=== PATIENT | male | born 1955 | race Caucasian/White ===

== ENCOUNTER 2018-06-08 19:40 | Inpatient (IN) | payer OTHER ==
[~2018-06-08] VITALS: Ht 177.8 cm; Wt 80.1 kg
[2018-06-08] MEDS ORDERED: FLUT1DIS3 INH (19:52)
[2018-06-08] MEDS ORDERED: AMLO10TA2 PO (19:52)
[2018-06-08] MEDS ORDERED: MONT10TA6 PO (19:52)
[2018-06-08 20:28] LABS: MEAN CORPUSCULAR HEMOGLOBIN 30.9 pg (27.5-34.5); MEAN CORPUSCULAR HGB CONC 34.7 g/dL (33.2-36.2); MEAN CORPUSCULAR VOLUME 88.9 fL (81-97); MEAN PLATELET VOLUME 6.7 fL (7.4-10.4); PLATELET COUNT 231 x10^3/uL (130-400); RED BLOOD COUNT 4.45 x10^6/uL (4.38-5.82); RED CELL DISTRIBUTION WIDTH 14.7 % (9.4-14.8)
[2018-06-08 20:36] LABS: ALANINE AMINOTRANSFERASE 37 U/L (12-78); ALBUMIN 3.6 g/dL (3.4-5.0); ANION GAP 9 mmol/L (5-15); CALCIUM 8.6 mg/dL (8.5-10.1); CHLORIDE 102 mmol/L (98-107); CREATININE 0.95 mg/dL (0.7-1.3)
[2018-06-08 20:40] LABS: ALKALINE PHOSPHATASE 62 U/L (45-117); BILIRUBIN,TOTAL 0.9 mg/dL (0.2-1.0); TOTAL PROTEIN 7.7 g/dL (6.4-8.2); TROPONIN I < 0.015 ng/mL (0.000-0.045)
[2018-06-08 20:54] LABS: MD YES
[2018-06-08 20:56] LABS: <RBC MORPHOLOGY> NORMAL; BAND#(MANUAL) 2.31 x10^3/uL; BANDS%(MANUAL) 14 % (0-7); LYMPH#(MANUAL) 0.33 x10^3/uL (1-3.4); LYMPHS% (MANUAL) 2 % (22-44); MONOS#(MANUAL) 0.17 x10^3/uL (0.3-2.7); MONOS% (MANUAL) 1 % (2-9); SEGS% (MANUAL) 83 % (42-75)
[2018-06-08 20:57] LABS: <PLATELET ESTIMATE> ADEQUATE; <PLT MORPHOLOGY> NORMAL PLT MORPH
[2018-06-08] MEDS ORDERED: SODIUM CHLORIDE 0.9% 1,000ML IVBOLUS ONE (21:00)
[2018-06-08] MEDS ORDERED: CEFEPIME 2 GM in DEXTROSE 5% 100 ML IV SCH (21:00)
[2018-06-08] MEDS ORDERED: VANCOMYCIN 1,600 MG in SODIUM CHLORIDE 0.9% 250 ML IV ONE (21:00)
[2018-06-08] MEDS ORDERED: OMNIPAQUE 350 MG/ML, 100ML BOTTLE ONE (21:10)
[2018-06-08] MEDS ORDERED: VANCOMYCIN PER PHARMACY MC ONE (21:30)
[2018-06-08] MEDS ORDERED: CEFEPIME 2 GM in DEXTROSE 5% 100 ML IV ONE (21:30)
[2018-06-08] MEDS ORDERED: ONDANSETRON 2MG/ML, 2ML IVPush PRN (22:00)
[2018-06-08] MEDS ORDERED: POLYETHYLENE GLYCOL 17 GM PACKET PO PRN (22:00)
[2018-06-08] MEDS ORDERED: GUAIFENESIN/DM 200-20MG, 10ML UDC PO PRN (22:00)
[2018-06-08] MEDS ORDERED: hydrALAzine 20 MG/ML, 1ML IVPush PRN (22:00)
[2018-06-08] MEDS ORDERED: ACETAMINOPHEN 325 MG TABLET PO PRN (22:00)
[2018-06-08] MEDS ORDERED: VANCOMYCIN PER PHARMACY MC PRN (22:00)
[2018-06-08 22:30] VITALS: BP 122/82
[2018-06-08] MEDS ORDERED: PHARMACOKINETIC CONSULTATION MC ONE (22:30)
[2018-06-08] MEDS ORDERED: PHARMACOKINETIC MONITORING MC PRN (22:30)
[2018-06-08] MEDS: ENOXAPARIN 40 MG/0.4 ML SQ SCH (22:37)
[2018-06-09 01:15] VITALS: BP 131/88
[2018-06-09] MEDS ORDERED: ALBUTEROL SULFATE 2.5 MG/3 ML NPPB PRN (01:30)
[2018-06-09 04:44] LABS: MEAN CORPUSCULAR HEMOGLOBIN 31.1 pg (27.5-34.5); MEAN CORPUSCULAR HGB CONC 34.8 g/dL (33.2-36.2); MEAN CORPUSCULAR VOLUME 89.4 fL (81-97); PLATELET COUNT 203 x10^3/uL (130-400); RED BLOOD COUNT 4.08 x10^6/uL (4.38-5.82); RED CELL DISTRIBUTION WIDTH 14.5 % (9.4-14.8)
[2018-06-09] MEDS: CEFEPIME 2 GM in DEXTROSE 5% 100 ML IV SCH ×3 (04:53→22:07)
[2018-06-09 04:55] LABS: CALCIUM 8.6 mg/dL (8.5-10.1); CHLORIDE 103 mmol/L (98-107)
[2018-06-09 04:59] LABS: ANION GAP 7 mmol/L (5-15); CREATININE 0.82 mg/dL (0.7-1.3)
[2018-06-09 05:41] LABS: MD YES
[2018-06-09 05:43] LABS: <RBC MORPHOLOGY> NORMAL; BAND#(MANUAL) 2.03 x10^3/uL; BANDS%(MANUAL) 10 % (0-7); LYMPH#(MANUAL) 1.62 x10^3/uL (1-3.4); LYMPHS% (MANUAL) 8 % (22-44); METAMYELOCYTES% (MANUAL) 1 % (0-1); MONOS#(MANUAL) 0.41 x10^3/uL (0.3-2.7); MONOS% (MANUAL) 2 % (2-9); SEG#(MANUAL) 16.04 x10^3/uL (1.8-6.8); SEGS% (MANUAL) 79 % (42-75)
[2018-06-09 05:44] LABS: <PLATELET ESTIMATE> ADEQUATE; <PLT MORPHOLOGY> NORMAL PLT MORPH
[2018-06-09 06:52] VITALS: BP 120/72
[2018-06-09] MEDS ORDERED: MAGNESIUM SULFATE PMX 4GM/100M 100 ML IV ONE (09:30)
[2018-06-09] MEDS: MONTELUKAST 10 MG TABLET PO SCH (10:04)
[2018-06-09] MEDS: AMLODIPINE 5 MG TABLET PO SCH (10:04)
[2018-06-09] MEDS: FLUTICASONE/VILANTEROL 100-25MCG/INH INH SCH (12:17)
[2018-06-09 14:00] VITALS: BP 124/79
[2018-06-09] MEDS: VANCOMYCIN 1,600 MG in SODIUM CHLORIDE 0.9% 250 ML IV SCH (15:42)
[2018-06-09 18:43] VITALS: BP 126/78
[2018-06-09] MEDS ORDERED: ZOLPIDEM 5MG TABLET PO PRN (21:00)
[2018-06-09] MEDS: ENOXAPARIN 40 MG/0.4 ML SQ SCH (22:07)
[2018-06-10 00:32] VITALS: BP 123/77
[2018-06-10 04:42] LABS: BASOPHILS # (AUTO) 0.01 x10^3/uL (0-0.1); BASOPHILS % (AUTO) 0 % (0-1); EOSINOPHILS # (AUTO) 0.27 x10^3/uL (0-0.4); EOSINOPHILS % (AUTO) 3 % (1-7); LYMPHOCYTES # (AUTO) 0.66 x10^3/uL (1-3.4); LYMPHOCYTES % (AUTO) 8 % (22-44); MD NO; MEAN CORPUSCULAR HEMOGLOBIN 30.9 pg (27.5-34.5); MEAN CORPUSCULAR HGB CONC 33.9 g/dL (33.2-36.2); MEAN CORPUSCULAR VOLUME 91.4 fL (81-97); MEAN PLATELET VOLUME 7.1 fL (7.4-10.4); MONOCYTES # (AUTO) 0.45 x10^3/uL (0.2-0.8); MONOCYTES % (AUTO) 5 % (2-9); NEUTROPHILS # (AUTO) 7.19 x10^3/uL (1.8-6.8); NEUTROPHILS % (AUTO) 84 % (42-75); PLATELET COUNT 186 x10^3/uL (130-400); RED BLOOD COUNT 3.91 x10^6/uL (4.38-5.82)
[2018-06-10 04:48] LABS: ANION GAP 7 mmol/L (5-15); CALCIUM 8.5 mg/dL (8.5-10.1); CHLORIDE 104 mmol/L (98-107); CREATININE 0.79 mg/dL (0.7-1.3)
[2018-06-10] MEDS: CEFEPIME 2 GM in DEXTROSE 5% 100 ML IV SCH ×2 (06:45→13:12)
[2018-06-10 06:50] VITALS: BP 125/75
[2018-06-10] MEDS: AMLODIPINE 5 MG TABLET PO SCH (07:47)
[2018-06-10] MEDS: FLUTICASONE/VILANTEROL 100-25MCG/INH INH SCH (07:47)
[2018-06-10] MEDS: MONTELUKAST 10 MG TABLET PO SCH (07:47)
[2018-06-10] MEDS: VANCOMYCIN 1,600 MG in SODIUM CHLORIDE 0.9% 250 ML IV SCH (09:55)
[2018-06-10 12:12] VITALS: BP 119/78
[2018-06-10 19:26] VITALS: BP 145/81
[2018-06-10] MEDS: ENOXAPARIN 40 MG/0.4 ML SQ SCH (21:31)
[2018-06-10] MEDS: CEFEPIME 2 GM in SODIUM CHLORIDE 0.9% 100 ML IV SCH (21:31)
[2018-06-11 00:29] VITALS: BP 131/82
[2018-06-11] MEDS: VANCOMYCIN 1,600 MG in SODIUM CHLORIDE 0.9% 250 ML IV SCH ×2 (04:02→23:30)
[2018-06-11 04:46] LABS: ANION GAP 6 mmol/L (5-15); CHLORIDE 102 mmol/L (98-107); CREATININE 0.74 mg/dL (0.7-1.3)
[2018-06-11 04:55] LABS: BASOPHILS # (AUTO) 0.03 x10^3/uL (0-0.1); BASOPHILS % (AUTO) 0 % (0-1); EOSINOPHILS # (AUTO) 0.33 x10^3/uL (0-0.4); EOSINOPHILS % (AUTO) 5 % (1-7); LYMPHOCYTES # (AUTO) 0.94 x10^3/uL (1-3.4); LYMPHOCYTES % (AUTO) 14 % (22-44); MD NO; MEAN CORPUSCULAR HEMOGLOBIN 30.6 pg (27.5-34.5); MEAN CORPUSCULAR HGB CONC 34.1 g/dL (33.2-36.2); MEAN CORPUSCULAR VOLUME 89.8 fL (81-97); MEAN PLATELET VOLUME 7.1 fL (7.4-10.4); MONOCYTES # (AUTO) 0.51 x10^3/uL (0.2-0.8); MONOCYTES % (AUTO) 8 % (2-9); NEUTROPHILS # (AUTO) 4.73 x10^3/uL (1.8-6.8); NEUTROPHILS % (AUTO) 72 % (42-75); PLATELET COUNT 239 x10^3/uL (130-400); RED BLOOD COUNT 4.25 x10^6/uL (4.38-5.82); RED CELL DISTRIBUTION WIDTH 14.3 % (9.4-14.8)
[2018-06-11] MEDS: CEFEPIME 2 GM in SODIUM CHLORIDE 0.9% 100 ML IV SCH ×3 (06:35→21:31)
[2018-06-11 07:00] VITALS: BP 121/81
[2018-06-11] MEDS: AMLODIPINE 5 MG TABLET PO SCH (09:15)
[2018-06-11] MEDS: MONTELUKAST 10 MG TABLET PO SCH (09:15)
[2018-06-11] MEDS: FLUTICASONE/VILANTEROL 100-25MCG/INH INH SCH (09:15)
[2018-06-11 13:22] VITALS: BP 115/72
[2018-06-11 18:40] VITALS: BP 127/78
[2018-06-11] MEDS: ENOXAPARIN 40 MG/0.4 ML SQ SCH (21:31)
[2018-06-12 02:13] VITALS: BP 121/80
[2018-06-12] MEDS: CEFEPIME 2 GM in SODIUM CHLORIDE 0.9% 100 ML IV SCH (05:55)
[2018-06-12 07:00] VITALS: BP 125/82
[2018-06-12] MEDS: MONTELUKAST 10 MG TABLET PO SCH (07:42)
[2018-06-12] MEDS: AMLODIPINE 5 MG TABLET PO SCH (07:42)
[2018-06-12] MEDS: FLUTICASONE/VILANTEROL 100-25MCG/INH INH SCH (07:43)
[2018-06-12] MEDS ORDERED: METR500T PO (11:14)
[2018-06-12] MEDS ORDERED: LEVO750T26 PO (11:14)
[2018-06-12] MEDS ORDERED: ACET325T14 PO (11:14)
[2018-06-12] MEDS ORDERED: metroNIDAZOLE 500 MG TABLET PO SCH (11:30)
[2018-06-12] MEDS ORDERED: LEVOFLOXACIN 750 MG TABLET PO SCH (11:30)
== END 2018-06-12 12:18 | disposition home or self-care (01) | DRG 193 ==
LOC: ED 21:54 → SUATTDRO 21:58 → ED 21:59 → EDIP 21:59 → 3NW 22:15
PROVIDERS: ADMIT Hospitalist; ATTEND Hospitalist
DX: J18.9 Pneumonia, unspecified organism (principal); J96.01 Acute respiratory failure with hypoxia; J44.0 Chronic obstructive pulmonary disease with (acute) lower respiratory infection; E83.42 Hypomagnesemia; I10 Essential (primary) hypertension; D72.825 Bandemia; Z88.2 Allergy status to sulfonamides; Z88.1 Allergy status to other antibiotic agents; Z72.89 Other problems related to lifestyle; Z71.89 Other specified counseling
CPT/HCPCS: 36415; 71045; 71275; 80048; 80053; 83605; 83735; 84100; 84484; 85025; 87040; 87070; 87077; 87186; 87205; 93005; 93306; 96361; 96365; J1650; J3370; Q9967; J3475; J7030; J7050